=== PATIENT | male | born 1995 | race African-American/Black ===

== ENCOUNTER 2016-08-04 10:38 | Emergency (ER) | payer SELFPAY ==
[2016-08-04 11:58] VITALS: BP 132/74
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
== END 2016-08-04 13:13 | disposition home or self-care (01) ==
LOC: UCCORT 10:38
DX: S02.609A Fracture of mandible, unspecified, initial encounter for closed fracture (principal); Y04.2XXA Assault by strike against or bumped into by another person, initial encounter; Y93.9 Activity, unspecified; Y92.9 Unspecified place or not applicable; Z77.22 Contact with and (suspected) exposure to environmental tobacco smoke (acute) (chronic)
CPT/HCPCS: 70486; 99201; G0463

== ENCOUNTER 2017-06-21 18:59 | Emergency (ER) | payer BC, OTHER ==
[2017-06-21 19:29] VITALS: BP 123/82
--- NOTE | 2017-06-21 20:11 | UC ---
Complaint Male HPI - HPI Summary HPI Summary: pt states has a new partner and would like std testing. denies any discharge or lesions. had chlamydia once and it "made my pee hole narrow". was concerned that may be happening but now doesn't have any symptoms thus was "probably all in my head". - History of Current Complaint Chief Complaint: UCSTDScreening Stated Complaint: PERSONAL Time Seen by Provider: 06/21/17 19:58 Hx Obtained From: Patient Timing: Constant Pain Intensity: 0 Aggravating Factor(s): Nothing Alleviating Factor(s): Nothing Associated Signs And Symptoms: Negative: Fever, Hematuria, Dysuria, Penile Swelling, Penile Discharge Prior STD Hx: chlamydia - Risk Factors Testicular Torsion: Negative - Allergies/Home Medications Allergies/Adverse Reactions: Allergies Allergy/AdvReac Type Severity Reaction Status Date / Time No Known Allergies Allergy Verified 06/21/17 19:28 Home Medications: Home Medications NK [No Home Medications Reported] 06/21/17 [History Confirmed 06/21/17] PMH/Surg Hx/FS Hx/Imm Hx Previously Healthy: Yes - Surgical History Surgical History: None - Family History Known Family History: Positive: None Family History: denies cardio vascular issues in family lineage - Social History Occupation: Employed Full-time Lives: Alone Alcohol Use: Occasionally Substance Use Type: None Smoking Status (MU): Never Smoked Tobacco Household Exposure Type: Cigarettes - Immunization History Vaccination Up to Date: Yes Review of Systems Constitutional: Negative Skin: Negative Eyes: Negative ENT: Negative Respiratory: Negative Cardiovascular: Negative Gastrointestinal: Negative Genitourinary: Negative Motor: Negative Neurovascular: Negative Musculoskeletal: Negative Neurological: Negative Psychological: Negative Is Patient Immunocompromised?: No All Other Systems Reviewed And Are Negative: Yes Physical Exam Triage Information Reviewed: Yes Appearance: Well-Appearing Vital Signs: Initial Vital Signs Temp 98 F 06/21/17 19:17 Pulse 61 06/21/17 19:17 Resp 14 06/21/17 19:17 BP 123/82 06/21/17 19:17 Pulse Ox 100 06/21/17 19:17 Vital Signs Reviewed: Yes Eyes: Positive: Conjunctiva Clear ENT: Positive: Normal ENT inspection, Pharynx normal, TMs normal. Negative: Nasal congestion Neck: Positive: Supple, Nontender, No Lymphadenopathy Respiratory: Positive: Lungs clear, Normal breath sounds Cardiovascular: Positive: RRR, No Murmur Abdomen Description: Positive: Nontender, No Organomegaly, Soft Bowel Sounds: Positive: Present Musculoskeletal: Positive: ROM Intact Neurological: Positive: Alert Psychological: Positive: Age Appropriate Behavior Skin Exam: Normal UC Physical Exam Vital Signs On Initial Exam: Initial Vitals Temp Pulse Resp BP Pulse Ox 98 F 61 14 123/82 100 06/21/17 19:17 06/21/17 19:17 06/21/17 19:17 06/21/17 19:17 06/21/17 19:17 - Genitalia Exam Male Genitalia: Circumcised, Other - no lesions or discharge Male Genitalia Cont.: Bilateral: Testicles Descended, Testicles Non-Tender, Testicles w/o Swelling, Scrotum Non-Tender Diagnostics - Laboratory Diagnostic Studies Completed/Ordered: u/a=1+ protein, otherwise unremarkable. gc , chlamydia, HIV and syphilis testing are pending Complaint Male Course/Dx - Course Course Of Treatment: no pcp so referal to N given. no sign of active std thus no tx at this time but testing is pending. - Differential Dx/Diagnosis Provider Diagnoses: STD evaluation Discharge - Discharge Plan Condition: Stable Disposition: HOME Patient Education Materials: Sexually Transmitted Diseases (ED) Referrals: Non Staff,Doctor [Primary Care Provider] - DANG Hernandez [Medical Doctor] -
== END 2017-06-21 20:27 | disposition home or self-care (01) ==
LOC: UCCORT 18:59
DX: Z11.3 Encounter for screening for infections with a predominantly sexual mode of transmission (principal); Z11.4 Encounter for screening for human immunodeficiency virus [HIV]
CPT/HCPCS: 36415; 81003; 86592; 86703; 87491; 87591; 99211; G0463